=== PATIENT | male | born 1995 | race Two or more races ===

== ENCOUNTER 2025-08-12 00:01 | Emergency (ER) | payer SELFPAY ==
[2025-08-12 00:44] VITALS: BP 142/82; PULSE 91; RESP 19; TEMP 36.4; O2SAT 100
[2025-08-12 00:45] VITALS: BMI 23.5
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
--- NOTE | 2025-08-12 01:31 | PRELIM_ITS ---
CT scan of the head without intravenous contrast (axial sections with sagittal and coronal reformats). August 12, 2025 0103 hours Clinical History: FACIAL INJURY Comparison: None Findings: There is no intracranial hemorrhage, extra-axial collection, mass, mass-effect or midline shift. There is good mix-white differentiation. There is no CT evidence of acute large vascular territorial infarct. Ventricles are not enlarged or effaced. Visualized paranasal sinuses and tympanomastoid cavities are clear. The bony calvarium is intact. Impression: No intracranial hemorrhage, mass-effect or midline shift. No CT evidence of acute large vascular territorial infarct. Report Electronically Signed By: Matt Elias 08/12/2025 1:31:02 AM [EST]
--- NOTE | 2025-08-12 02:22 | PRELIM_ITS ---
CT maxillofacial without intravenous contrast (axial sections with sagittal and coronal reformats). August 12, 2025 0104 hours Clinical History: FACIAL INJURY Comparison: None Findings: There is no fracture, dislocation or other acute osseous abnormality of the face. Orbits are intact. Superficial soft tissues of the face are intact. Paranasal sinuses and tympanomastoid cavities are clear. Small right nasal septal spur noted. Impression: No acute osseous abnormality of the face. Report Electronically Signed By: Matt Elias 08/12/2025 2:21:33 AM [EST]
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
[2025-08-12 02:38] VITALS: BP 133/90; PULSE 86; RESP 18; TEMP 36.6; O2SAT 95
[2025-08-12 03:25] VITALS: BP 134/91; PULSE 76; RESP 12; TEMP 36.3; O2SAT 98
== END 2025-08-12 03:27 | disposition home or self-care (01) ==
PROVIDERS: Emergency Provider Emergency Medicine
DX: S01.311A Laceration without foreign body of right ear, initial encounter (principal); V18.4XXA Pedal cycle driver injured in noncollision transport accident in traffic accident, initial encounter; Y93.55 Activity, bike riding
CPT/HCPCS: 70450; 70486; 99283